=== PATIENT | female | born 1980 | race African-American/Black ===

== ENCOUNTER 2019-09-30 09:37 | Emergency (ER) | payer OTHER ==
[2019-09-30 09:58] VITALS: BP 126/80; RESP 18; TEMP 98.3
[2019-09-30] MEDS ORDERED: IPRATROPIUM-ALBUTEROL 3 ML NEB INHALATION STA (10:12)
[2019-09-30] MEDS ORDERED: predniSONE 50 MG TAB PO STA (10:25)
--- NOTE | 2019-09-30 10:28 | ED ---
General Adult HPI - General Chief complaint: Upper Respiratory Infection Stated complaint: BOO Time Seen by Provider: 09/30/19 10:05 Source: patient, RN notes reviewed, old records reviewed Mode of arrival: ambulatory Limitations: no limitations - History of Present Illness Initial comments: 39-year-old female patient past history of hypertension presents to ED chief complaint of cough and congestion for one week. Patient is a poor that she has had some fevers and chills and some associated shortness of breath. Denies any pain. Denies any chance of being due to IUD. Denies any other complaints. Systemic: Pt denies fatigue, fever/chills, rash. Pt denies weakness, night sweats, weight loss. Neuro: Pt denies headache, visual disturbances, syncope or pre-syncope. HEENT: Pt denies ocular discharge or irritation, otalgia, rhinorrhea, pharyngitis or notable lymphadenopathy. Cardiopulmonary: Pt denies chest pain, heart palpitations, dyspnea on exertion. Abdominal/GI: Pt denies abdominal pain, n/v/d. : Pt denies dysuria, burning w/ urination, frequency/urgency. Denies new onset urinary or bowel incontinence. MSK: Pt denies myalgia, loss of strength or function in extremities. Neuro: Pt denies new onset weakness, paresthesias. - Related Data Home Medications Medication Instructions Recorded Confirmed D-Methorphan/PE/Acetaminophen 1 tab PO Q12H 09/30/19 09/30/19 [Theraflu Expressmax Day Caplet] Previous Rx's Medication Instructions Recorded Albuterol Inhaler [Ventolin Hfa 1 - 2 puff INHALATION Q4-6H PRN #1 09/30/19 Inhaler] inhaler Benzonatate [Tessalon Perles] 100 mg PO TID PRN #20 cap 09/30/19 predniSONE 50 mg PO DAILY #4 tab 09/30/19 Allergies Allergy/AdvReac Type Severity Reaction Status Date / Time No Known Allergies Allergy Verified 09/30/19 10:37 Review of Systems ROS Statement: Those systems with pertinent positive or pertinent negative responses have been documented in the HPI. ROS Other: All systems not noted in ROS Statement are negative. Past Medical History Past Medical History: No Reported History History of Any Multi-Drug Resistant Organisms: None Reported Past Surgical History: No Surgical Hx Reported Past Psychological History: No Psychological Hx Reported Smoking Status: Current every day smoker Past Alcohol Use History: Occasional Past Drug Use History: Marijuana General Exam - General Exam Comments Initial Comments: Constitutional: NAD, AOX3, Pt has pleasant affect. HEENT: NC/AT, trachea midline, neck supple, no lymphadenopathy. Posterior pharynx non erythematous, without exudates. External ears appear normal, without discharge. Mucous membranes moist. Eyes PERRLA, EOM intact. There is no scleral icterus. No pallor noted. Cardiopulmonary: RRR, no murmurs, rubs or gallops, no JVD noted. Mild wheezing left lower lung field, lungs otherwise clear to auscultation . No peripheral edema. Abdominal exam: Abdomen soft and non-distended. Abdomen non-tender to palpation in all 4 quadrants. Bowel sounds active in LLQ. No hepatosplenomegaly. No ecchymosis Neuro: CN II-XII grossly intact. No nuchal rigidity. No raccon eyes, no pérez sign, no hemotympanum. No cervical spinal tenderness. MSK: No posterior calf tenderness bilaterally, homans sign negative bilaterally. Posterior tibialis and radial pulse +2 bilaterally. Sensation intact in upper and lower extremities. Full active ROM in upper and lower extremities, 5/5 stregnth. Limitations: no limitations Course Vital Signs 09/30/19 09/30/19 09/30/19 09:55 10:37 10:45 Temperature 98.3 F Pulse Rate 73 74 72 Respiratory 18 Rate Blood Pressure 126/80 O2 Sat by Pulse 99 Oximetry Medical Decision Making - Medical Decision Making 39-year-old female patient past history of hypertension presents to ED chief complaint of cough and congestion for one week. Patient is a poor that she has had some fevers and chills and some associated shortness of breath. Denies any pain. Denies any chance of being due to IUD. Denies any other complaints. Patient vital signs stable, afebrile. Physical exam displayed mild wheezing left lower lung field, resolved after breathing treatment. Chest x-ray revealed central bilateral perihilar peribronchial cuffing. Patient likely expressing a bronchitis-like syndrome. Patient denies risk factors for PE. Patient improved after breathing treatment. Patient will be discharged with steroids, breathing treatment, an antitussive. Will follow up with primary care provider tomorrow. We'll try to ER if patient worsens. Case discussed with Dr. Denson. Disposition Clinical Impression: Bronchitis Disposition: HOME SELF-CARE Condition: Stable Instructions (If sedation given, give patient instructions): Acute Bronchitis (ED) Additional Instructions: Patient to adhere to previously discussed treatment plan and will take medication(s) as directed. Patient to follow up with PCP tomorrow. Patient to return to ED if symptoms do not improve. Prescriptions: predniSONE 50 mg PO DAILY #4 tab Benzonatate [Tessalon Perles] 100 mg PO TID PRN #20 cap PRN Reason: cough Albuterol Inhaler [Ventolin Hfa Inhaler] 1 - 2 puff INHALATION Q4-6H PRN #1 inha ler PRN Reason: Cough Is patient prescribed a controlled substance at d/c from ED?: No Referrals: None,Stated [Primary Care Provider] - 1-2 days [facility] [NON-[facility]] - 1-2 days
[2019-09-30 10:47] VITALS: PULSE 72
--- NOTE | 2019-09-30 10:54 | XR ---
EXAMINATION TYPE: XR chest 2V DATE OF EXAM: 09/30/2019 COMPARISON: NONE HISTORY: Productive cough shortness of breath and fever for one week. TECHNIQUE: Frontal and lateral views of the chest are obtained. FINDINGS: There is no suspicious peripheral focal air space opacity, pleural effusion, or pneumothor ax seen. Central perihilar peribronchial cuffing. The cardiac silhouette size is within normal limit s. The osseous structures are intact. IMPRESSION: Central bilateral perihilar peribronchial cuffing suggesting reactive airway disease pos sibly from a viral bronchiolitis.
== END 2019-09-30 11:19 | disposition home or self-care (01) ==
LOC: EC 09:37
DX: J40 Bronchitis, not specified as acute or chronic (principal); R91.8 Other nonspecific abnormal finding of lung field; F17.200 Nicotine dependence, unspecified, uncomplicated; Z79.899 Other long term (current) drug therapy; Z97.5 Presence of (intrauterine) contraceptive device
CPT/HCPCS: 94640; 71046; 99285; J7512